=== PATIENT | male | born 1955 | race Caucasian/White ===

== ENCOUNTER → 2024-03-05 09:50 | Outpatient (BNVA) | payer MEDICARE, SELFPAY | PROVIDERS: PCP Electrodiagnostic Medicine; Visit Provider Specialist | DX: R20.0 Anesthesia of skin (principal); R20.2 Paresthesia of skin; G56.03 Carpal tunnel syndrome, bilateral upper limbs | CPT/HCPCS: 95886; 95910; 95911 ==

== ENCOUNTER → 2024-04-23 07:43 | Outpatient (BNVA) | payer MEDICARE, SELFPAY | PROVIDERS: PCP Electrodiagnostic Medicine; Visit Provider Student in an Organized Health Care Education/Training Program | DX: G56.03 Carpal tunnel syndrome, bilateral upper limbs (principal) | CPT/HCPCS: 73110; 99204 ==

== ENCOUNTER 2024-05-01 07:11 | Day surgery (SDC) | payer MEDICARE, SELFPAY ==
[2024-05-01] VITALS (8 sets, daily range): BP systolic 107–145; BP diastolic 61–77; PULSE 72–80; RESP 16–20; TEMP 36.2–36.8; O2SAT 96–99; BMI 28.5
--- NOTE | 2024-05-01 07:29 | W.PM.OPSUD ---
Surgery/Procedure H&P Update DATE OF PROCEDURE: May 01, 2024 DATE H&P PERFORMED: 04/23/24 H&P UPDATE INFORMATION: I have reviewed H&P completed within last 30 days, I have examined patient prior to procedure and No changes to prior documentation PREOP DIAGNOSIS: Right carpal tunnel syndrome PRIMARY INDICATION FOR PROCEDURE: Right carpal tunnel syndrome PLANNED PROCEDURE: Operation Date: 05/01/24 08:55 Proposed Procedures p Carpal Tunnel Release(Right) - Kwaku Calvin DO
[2024-05-01] MEDS: acetaminophen 1,000 MG/100 ML PIGGYBACK 400 MG IV (07:40)
[2024-05-01] MEDS: sodium chloride 0.9% 1,000 ML 30 ML IV (07:40)
--- NOTE | 2024-05-01 07:40 | ANES.PREANE2 ---
Pre-Anesthetic Assessment Height/Weight: Height 1.75 m Temp Pulse Resp BP Pulse Ox O2 Del Method 97.1 F L 80 16 107/72 99 Room Air 05/01/24 07:33 05/01/24 07:33 05/01/24 07:33 05/01/24 07:33 05/01/24 07:33 05/01/24 07:36 Preop Diagnosis: Right carpal tunnel syndrome Operation Date: 05/01/24 08:55 Proposed Procedures p Carpal Tunnel Release(Right) - Kwaku Calvin DO Familial anesthetic complications: None Was Beta Liz taken within 24 hours: N/A Was Clonidine taken within 24 hours: N/A Last intake: > 8 hrs Social No alcohol and No tobacco Exam alert, oriented x 3, clear to auscultation bilaterally and regular rate & rhythm Airway Mallampati: Class II Dentition: full Pulmonary pulm HTN GI Gastroesophageal Reflux Disease Metabolic Diabetes Mellitus and Hyperlipidemia Anesthetic Plan ASA status: 3 Anesthesia: MAC Risk of > 500 ml blood loss (7ml/kg in children): No Medications/Allergies Home Medications Medication Instructions Recorded Confirmed Last Taken Type atorvastatin 40 mg tablet 40 mg PO DAILY 01/19/21 04/30/24 04/30/24 History fluoxetine 10 mg tablet 10 mg PO DAILY 01/19/21 04/30/24 04/30/24 History omeprazole 20 mg capsule,delayed 20 mg PO DAILY 01/19/21 04/30/24 04/30/24 History release sildenafil (pulm.hypertension) 20 20 mg PO TID 01/19/21 04/30/24 Unknown History mg tablet empagliflozin 25 mg tablet 25 mg PO DAILY #90 tabs 02/09/22 04/30/24 04/30/24 Rx (Jardiance) insulin detemir U-100 100 unit/mL 40 unit (0.4 mL) SUBCUT BID 90 02/09/22 04/30/24 04/30/24 Rx (3 mL) subcutaneous pen (Levemir days #72 mL FlexTouch U-100 Insulin) tamsulosin 0.4 mg capsule 0.4 mg PO DAILY 04/30/24 04/30/24 04/30/24 History tirzepatide 10 mg/0.5 mL mg SUBCUT 04/30/24 04/20/24 History subcutaneous pen injector (Werounjaro) Allergies Allergy/AdvReac Type Severity Reaction Status Date / Time Sulfa (Sulfonamide Allergy na Verified 05/01/24 07:23 Antibiotics) [facility] Anesthesia Social History Smoking and tobacco/nicotine status: never used tobacco/nicotine Alcohol intake: never Substance/Drug Use: never Data Anesthesia Cardiac Studies: No Data to Display
[2024-05-01] MEDS: scopolamine 1.5 Patch 1 PATCH TRANSDERMA (07:41)
[2024-05-01] MEDS: ketorolac 30 mg/mL INJ IVP (07:41)
[2024-05-01 08:01] LABS: Glucose Point of Care 132 mg/dL (70-110)
--- NOTE | 2024-05-01 08:09 | W.PM.BPON ---
Date of Procedure: [05/01/2024] Surgeon: Kwaku Calvin DO Sound Effects Supervisor(s): None Procedure(s) performed: Left carpal tunnel release Left cubital tunnel release (ulnar nerve decompression at the elbow) Findings of the procedure(s): Patient found to have left carpal tunnel syndrome and left cubital tunnel syndrome underwent procedure as planned without issues or complications Estimated blood loss: 10 mL Specimen(s) removed: None Post-operative diagnosis: Left carpal tunnel syndrome, left cubital tunnel syndrome
[2024-05-01] MEDS: ceFAZolin 2,000 MG in sodium chloride 0.9% (plus) 50 ML 100 MG IV (08:10)
[2024-05-01] MEDS: lidocaine-epi 1% PF 1:200,000 30 mL SDV INJECTION (08:20)
[2024-05-01] MEDS: ROPivacaine 0.5% SDV 30 mL 150 MG INJECTION (08:20)
--- NOTE | 2024-05-01 08:40 | PM.OP ---
Operative Report Date of procedure: May 01, 2024 Surgeon: Kwaku Calvin DO Procedure: Preop Diagnosis: Right Carpal Tunnel Syndrome Post-op diagnosis: Same Procedure done: 1. Right carpal tunnel release Surgeon: Kwaku Calvin DO Anesthesia: MAC (Local) Estimated blood loss: 2 mL Tourniquet time 7 minutes IV fluids: See anesthesia record Complications: None Findings: See operative report narrative Condition: stable Disposition: same day Brief History: Patient is a pleasant 68 year-old male with right carpal tunnel syndrome. Patient has been worked up in the outpatient setting findings and physical examination consistent with this. Patient nerve conduction studies consistent with carpal tunnel syndrome. We detailed out patient's risk benefits complication alternatives with surgical and nonsurgical treatment options. Through shared decision making, patient agrees to proceed with surgical intervention of the right carpal tunnel release . Patient understands and agrees with current plan. All questions answered. Patient elects to proceed with surgical intervention with carpal tunnel release. Procedure: Patient seen and evaluated in the preoperative holding area. Consent was reviewed and signed with patient. Correct extremity was marked. Patient was seen evaluated by the anesthesia department once cleared for surgery was brought back to the operative suite. Patient was kept on [facility] in supine position all bony prominences were well-padded patient properly secured to the bed. Right upper extremity was then placed onto an armboard. A nonsterile tourniquet was applied to the RIght upper arm. Patient underwent anesthesia per the anesthesia department. Patient's Right upper extremity was then prepped and draped in standard orthopedic fashion. Final timeout performed. Patient received appropriate preoperative antibiotics. Under sterile aseptic technique patient received local anesthesia over the preplanned carpal tunnel incision site. Esmarch was used to exsanguinate the Right upper extremity and tourniquet was insufflated to 250 mmHg. A standard mini open Right carpal tunnel incision was made. Starting distally at Paula's cardinal line in line with the fourth ray extending proximally distal to the wrist crease centered over the carpal tunnel. Sharp scalpel incision was made through skin and subcutaneous tissue. Self-retaining retractor was placed and the palmar fascia was identified. This was then split longitudinally and direct visualization of the transverse carpal ligament was then made. I then utilizing scalpel feathered through the transverse carpal ligament until I entered the floor of the transverse carpal tunnel ligament into the carpal tunnel. Next I switched to dissection scissors and completed my release of the transverse carpal ligament distally with care to protect the recurrent motor branch. I completely released into the palmar fat and until no entrapment was noted distally. Care was made to protect the superficial palmar arch during my distal dissection. Next I utilized a nasal speculum placed on top of the transverse carpal ligament and utilize this to retract the subcutaneous fat and tissue and under direct loupe magnification was able to identify the transverse carpal ligament. Next I then protected the contents of the carpal tunnel and subsequently utilizing dissection scissors under loupe magnification completely released the transverse carpal ligament proximally into the antebrachial fascia. Care was made to protect the palmar cutaneous branch by keeping my scissors curved ulnarly. Once completely released, I then placed my [place] and had appropriate decompression of the carpal tunnel proximally as well as distally. I then inspected the contents of the carpal tunnel which showed an hourglass shape of the median nerve showing its compression. No masses were noted. Tendons appeared healthy. Wound was then thoroughly irrigated. Tourniquet deflated. Hemostasis satisfactory with bipolar electrocautery. I then closed the incision with interrupted nylon stitches. Xeroform 4 x 4's and a bulky soft dressing was applied. Patient was then awakened from anesthesia and taken to PACU in stable condition. Patient tolerated procedure without complications. Disposition: Patient taken to PACU in stable condition recovering well. Dressing clean dry and intact. Patient will receive appropriate discharge instructions as well as pain medication postoperatively. Patient to follow-up with me in the office in 2 weeks. They understand they may be weightbearing as tolerated to the right hand. Patient should keep incision clean dry and intact. Patient understands if any questions or concerns may contact the office.
--- NOTE | 2024-05-01 08:43 | P.BOP_ITS ---
Date of Procedure: 05/01/2024 Surgeon: Kwaku Calvin DO Stakeholder Manager(s): None Procedure(s) performed: Right carpal tunnel release Findings of the procedure(s): Right carpal tunnel syndrome patient underwent procedure as planned without issues or complications Estimated blood loss: 2 mL Specimen(s) removed: None Post-operative diagnosis: Right carpal tunnel syndrome
[2024-05-01] MEDS: TRAMadol 50 mg Tablet PO (09:24)
--- NOTE | 2024-05-01 09:42 | ANE.PACU2 ---
Inpatient post-anesthesia follow up: Airway intact: Yes Vital signs: Temperature 97.2 F Pulse Rate 72 Respiratory Rate 18 Blood Pressure 145/77 Pulse Oximetry 96 Oxygen Delivery Me thod Room Air Oxygen Flow Rate Fraction of Inspir ed Oxygen Hydration adequate: Yes Nausea and vomiting: No Pain level: 1 Mental status: Baseline
== END 2024-05-01 09:43 | disposition home or self-care (01) ==
PROVIDERS: PCP Electrodiagnostic Medicine; Visit Provider Student in an Organized Health Care Education/Training Program
PROC: (CPT 64721; principal; 2024-05-01 08:55)
DX: G56.01 Carpal tunnel syndrome, right upper limb (principal); K21.9 Gastro-esophageal reflux disease without esophagitis; E78.5 Hyperlipidemia, unspecified; E11.9 Type 2 diabetes mellitus without complications; Z79.4 Long term (current) use of insulin
CPT/HCPCS: 64721; 36416; 82962; J0131; J0690; J1885; J2704; J2795; J3010; J7030

== ENCOUNTER → 2024-05-16 08:15 | Outpatient (BNVA) | payer MEDICARE, SELFPAY | PROVIDERS: PCP Electrodiagnostic Medicine; Visit Provider Physician Assistant | DX: Z98.890 Other specified postprocedural states (principal) | CPT/HCPCS: 99024 ==